=== PATIENT | female | born 1955 | race Caucasian/White ===

== ENCOUNTER → 2016-11-05 | Outpatient (CLI) | payer MEDICARE | END | disposition home or self-care (01) | LOC: CFH 10:30 | PROVIDERS: ATTEND Obstetrics & Gynecology | DX: Z12.31 Encounter for screening mammogram for malignant neoplasm of breast (principal) | CPT/HCPCS: 77063; G0202 ==

== ENCOUNTER 2016-12-02 05:51 | Observation (INO) | payer MEDICARE ==
[~2016-12-02] VITALS: Ht 160 cm; Wt 101.8 kg
[~2016-12-02 05:51] MED LIST: ACET-1600 PO; ASPI-650 PO; CARV6.252 PO; CHOL100015 PO; DIPH25CA61 PO; ENAL10TA PO; MEGE20TA PO; METF10002 PO; MULT-516 PO; OMEP20TA62 PO; SIMV20TA3 PO
[2016-12-02] MEDS ORDERED: LACTATED RINGERS 1,000 ML IV SCH (06:26)
[2016-12-02 06:27] VITALS: BP 137/90
[2016-12-02] MEDS ORDERED: LIDOCAINE 1%, 2ML SQ PRN (06:30)
[2016-12-02] MEDS ORDERED: FENTANYL PF 250 MCG/5ML ONE (07:06)
[2016-12-02] MEDS ORDERED: MIDAZOLAM 1 MG/ML, 2ML ONE (07:06)
[2016-12-02] MEDS ORDERED: HEPARIN 1,000 UNITS/ML, 10ML ONE (07:19)
[2016-12-02] MEDS ORDERED: INDOCYANINE GREEN 25 MG VIAL ONE (07:19)
[2016-12-02] MEDS ORDERED: BUPIVACAINE/PF-EPI 0.25% 1:200K ONE (07:20)
[2016-12-02] MEDS ORDERED: ACETAMINOPHEN 325 MG TABLET PO PRN ×2 (09:00→12:30)
[2016-12-02] MEDS ORDERED: HYDROmorphone 1 MG/ML, 1ML IV PRN (09:00)
[2016-12-02] MEDS ORDERED: OXYcodone 5 MG/5 ML ORAL.SOL UDC PO PRN (09:00)
[2016-12-02] MEDS ORDERED: ONDANSETRON 2MG/ML, 2ML IVPush PRN (09:00)
[2016-12-02] MEDS ORDERED: METOCLOPRAMIDE 5 MG/ML, 2ML IV PRN (09:00)
[2016-12-02] MEDS ORDERED: FENTANYL PF 100 MCG/2ML IV PRN (09:00)
[2016-12-02] MEDS ORDERED: hydrALAzine 20 MG/ML, 1ML IV PRN (09:00)
[2016-12-02] MEDS ORDERED: SUGAMMADEX 200 MG/2 ML IVPush ONE (10:00)
[2016-12-02] MEDS ORDERED: FENTANYL PF 100 MCG/2ML ONE ×2 (10:07→10:59)
[2016-12-02] MEDS ORDERED: ONDANSETRON 2MG/ML, 2ML ONE (10:26)
[2016-12-02] MEDS ORDERED: LABETALOL 5MG/ML 40ML VIAL ONE (10:26)
[2016-12-02] MEDS ORDERED: PROPOFOL 10 MG/ML, 20ML ONE (10:26)
[2016-12-02] MEDS ORDERED: ROCURONIUM 10 MG/ML ONE (10:26)
[2016-12-02] MEDS ORDERED: CEFAZOLIN 1,000 MG ONE (10:26)
[2016-12-02] MEDS ORDERED: SUCCINYLCHOLINE 20 MG/ML, 10ML ONE (10:26)
[2016-12-02] MEDS ORDERED: ALBUTEROL/IPRATROPIUM 2.5MG/0.5MG, 3 ML ONE (10:38)
[2016-12-02] MEDS: LABETALOL 5MG/ML, 20ML IV PRN ×2 (10:40→10:53)
[2016-12-02] MEDS ORDERED: ALBUTEROL/IPRATROPIUM 2.5MG/0.5MG, 3 ML NEB ONE (10:40)
[2016-12-02] MEDS ORDERED: OXYcodone 5 MG/5 ML ORAL.SOL UDC ONE (10:58)
[2016-12-02] MEDS ORDERED: hydrALAzine 20 MG/ML, 1ML ONE (10:59)
[2016-12-02 12:25] VITALS: BP 155/86
[2016-12-02] MEDS ORDERED: ACETAMINOPHEN 650 MG SUPP PR PRN (12:30)
[2016-12-02] MEDS ORDERED: ONDANSETRON 2MG/ML, 2ML IV PRN (12:30)
[2016-12-02] MEDS ORDERED: morphine SULFATE 10 MG/ML, 1ML IV PRN (12:30)
[2016-12-02] MEDS: POTASSIUM CHLORIDE 20 MEQ in D5%-0.45% NACL 1,000 ML IV SCH ×2 (15:19→22:50)
[2016-12-02] MEDS: metFORMIN 500 MG TABLET PO SCH (16:51)
[2016-12-02] MEDS: CARVEDILOL 6.25 MG TABLET PO SCH (18:20)
[2016-12-02 19:50] VITALS: BP 133/75
[2016-12-02] MEDS: HEPARIN 5,000 UNITS/ML, 1ML SQ SCH (21:15)
[2016-12-02] MEDS: OXYcodone/APAP 7.5/325MG TABLET PO PRN (21:16)
[2016-12-02 23:41] VITALS: BP 137/68
[2016-12-03] MEDS: CARVEDILOL 6.25 MG TABLET PO SCH ×2 (05:00→18:09)
[2016-12-03] MEDS: HEPARIN 5,000 UNITS/ML, 1ML SQ SCH ×3 (05:00→20:53)
[2016-12-03] MEDS: POTASSIUM CHLORIDE 20 MEQ in D5%-0.45% NACL 1,000 ML IV SCH ×3 (05:00→21:45)
[2016-12-03] MEDS: OXYcodone/APAP 7.5/325MG TABLET PO PRN ×3 (05:03→21:45)
[2016-12-03 06:09] LABS: BLOOD UREA NITROGEN 24 mg/dL (7-18)
[2016-12-03 07:44] LABS: ANISOCYTOSIS 1+; LARGE PLATELETS 1+
[2016-12-03] MEDS: metFORMIN 500 MG TABLET PO SCH ×2 (07:53→18:09)
[2016-12-03 08:19] VITALS: BP 124/68
[2016-12-03] MEDS: ENALAPRIL 10 MG TABLET PO SCH (09:15)
[2016-12-03 13:28] VITALS: BP 137/70
[2016-12-03 20:22] VITALS: BP 109/67
[2016-12-04] MEDS: POTASSIUM CHLORIDE 20 MEQ in D5%-0.45% NACL 1,000 ML IV SCH ×2 (01:56→07:34)
[2016-12-04 03:00] VITALS: BP 155/77
[2016-12-04] MEDS: OXYcodone/APAP 7.5/325MG TABLET PO PRN (05:35)
[2016-12-04] MEDS: CARVEDILOL 6.25 MG TABLET PO SCH (05:36)
[2016-12-04] MEDS: HEPARIN 5,000 UNITS/ML, 1ML SQ SCH (05:36)
[2016-12-04 07:18] VITALS: BP 99/65
[2016-12-04 07:49] LABS: BLOOD UREA NITROGEN 21 mg/dL (7-18)
[2016-12-04] MEDS: metFORMIN 500 MG TABLET PO SCH (09:38)
[2016-12-04 09:44] VITALS: BP 120/78
[2016-12-04] MEDS: ENALAPRIL 10 MG TABLET PO SCH (09:44)
[2016-12-04 11:00] VITALS: BP 120/78
[2016-12-04] MEDS ORDERED: OXYC-223 PO (11:49)
[2016-12-04] MEDS ORDERED: ONDA4TAB7 PO (11:50)
[2016-12-04] MEDS ORDERED: METO10TA82 PO (11:51)
== END 2016-12-04 12:10 | disposition home or self-care (01) ==
LOC: ORIP 05:51 → INTOOBSV 05:51 → EDSTATUS 07:30 → 4NOR 12:14 → DCLOUNGE 12-04 11:27
PROVIDERS: ADMIT Specialist; ATTEND Specialist
DX: C54.1 Malignant neoplasm of endometrium (principal); N85.02 Endometrial intraepithelial neoplasia [EIN]
CPT/HCPCS: 36415; 58571; 74000; 80048; 82962; 85025; 86850; 86900; 86923; 88305; 88307; 88331; 88333; 88334; 94640; 96372; 96374; G0378; J0330; J0360; J0690; J1644; J2250; J2270; J2405; J2704; J3010; J3480; J7120; S2900; J7620